=== PATIENT | female | born 1995 | race Hispanic/Latino ===

== ENCOUNTER 2018-03-14 02:19 | Day surgery (SDC) | payer MEDICAID, SELFPAY ==
[2018-03-14 02:56] VITALS: BMI 32.8
--- NOTE | 2018-03-14 03:23 | PDOC.LDHP ---
Labor and Delivery H&P Chief complaint: contractions HPI: 22 yo @ 39w0d by LMP c/w 11.4w US. Patient states she began having contractions approximately 15 minutes apart beginning at 2300 on 03/13/18. She denies recent illness, fevers, or chills. She denies vaginal discharge or bleeding. She admits to positive movement. No other complaints. Current gestational age (weeks): 39 Due date: 03/21/18 Dating criteria: last menstrual period Grav: 2 Para: 1 OB History Details: Prior for arrest of dilation and failure to descend. Current complications: other (Anemia of ) Abnormal US findings: No Previous surgical history: low tranverse CS Social history: none - Physical Exam Vital signs reviewed and normal: yes General: NAD Heart: RRR Lungs: CTAB Abdomen: gravid Extremeties: no edema FHT: category 1 [place] contractions every: 15 minutes - Vaginal Exam cm dilated: 4 Effacement: 50% Station: -2 - OB Labs Blood type: O RH: positive Antibody Screen: negative HIV: negative RPR: negative HEPSAg: negative 1 hour GCT: negative GBS: negative Urine drug screen: not done Rubella: immune - Assessment 1. TIUP - Patient counseled extensively on TOLAC vs. repeat - Not currently in active labor. - Will observe patient to determine rate of range and progression of labor 2. Anemia of - Continue Iron and PNV Disposition: TIUP, not in active labor. Will observe in L&D - Plan Plan: observation in L&D <Aaron Magaña - Last Filed: 03/14/18 04:15> <Jayden Sanabria - Last Filed: 03/14/18 07:56> Allergies/Adverse Reactions: Allergies Allergy/AdvReac Type Severity Reaction Status Date / Time No Known Drug Allergies Allergy Verified 03/14/18 02:44 Attending Addendum - Attending Addendum Date/Time: 03/14/18 8428 I personally evaluated the patient and discussed the management with Dr. Magaña I agree with the History, Examination, Assessment and Plan documented above with any addition or exceptions noted below. <Jayden Sanabria - Last Filed: 03/14/18 07:56>
[2018-03-14] MEDS ORDERED: Promethazine HCl 25 MG/ML VIAL IM SCH (04:45)
[2018-03-14] MEDS ORDERED: Morphine 10 MG/ML VIAL IM SCH (04:45)
--- NOTE | 2018-03-14 05:25 | PDOC.EVN ---
Event Note - Event Note Event Note: Patient was counseled extensively on the options of TOLAC vs. Repeat delivery. At first patient wanted to proceed with . However, after further explanation and discussion she would like to opt for TOLAC. She was counseled on risks and benefits of both options extensively. She expressed understanding. She has been counseled to inform PNC at her appointment on Thursday that she would like to attempt TOLAC. That should be scheduled at that time. She is also counseled on return precautions and verbalized understanding. She will follow up with PNC and her PCP on Thursday with further management planning made at that time. <Aaron Magaña - Last Filed: 03/14/18 05:23> Attending Addendum - Attending Addendum Date/Time: 03/14/18 0757 I personally evaluated the patient and discussed the management with Dr. Magaña I agree with the History, Examination, Assessment and Plan documented above with any addition or exceptions noted below. I have counselled personally with pt to the risks and benefits of a TOLAC. In addition She has read the written consent for TOLAC. She has considered her options and desires to proceed with TOLAC when in labor. <Jayden Sanabria - Last Filed: 03/14/18 07:58>
== END 2018-03-14 05:29 | disposition home or self-care (01) ==
LOC: L&D/OP 02:19
PROVIDERS: ATTEND Obstetrics & Gynecology
DX: O47.1 False labor at or after 37 completed weeks of gestation (principal); O99.013 Anemia complicating pregnancy, third trimester; D64.9 Anemia, unspecified; Z3A.39 39 weeks gestation of pregnancy; Z98.891 History of uterine scar from previous surgery
CPT/HCPCS: 76815; 96372; 99283; J2270; J2550

== ENCOUNTER 2018-03-14 16:37 | Inpatient (IN) | payer MEDICAID, SELFPAY ==
[2018-03-14 17:01] VITALS: BMI 36.3
[2018-03-14] MEDS ORDERED: HYDROcodone/Acetaminophen 5/325 mg Tablet PO PRN ×2 (17:15)
[2018-03-14] MEDS ORDERED: Lidocaine 1% (PF) 30 ML VIAL SC PRN (17:15)
[2018-03-14] MEDS ORDERED: Promethazine HCl 25 MG/ML VIAL IM PRN ×2 (17:15→18:33)
[2018-03-14] MEDS ORDERED: LR / Pitocin 40 units/1000 ml 1,000 ML IV PRN (17:15)
[2018-03-14] MEDS ORDERED: Ibuprofen 800 MG TAB PO PRN (17:15)
--- NOTE | 2018-03-14 17:21 | PDOC.LDHP ---
Labor and Delivery H&P Chief complaint: other (Prior CS HX desires /TOLAC) HPI: @ 3509: This patient is a 22 yo prior CS in 2016 who desires TOLAC. She was seen here this AM with Dr Sanabria at [id number] (approx) for threatened ctxs and was 4 sm then. Now with persistent contractions. No VB, no ROM, good FM. She is 39 weeks No HAs nor visual changes. Review of Systems: Complete ROS performed and negative as per HPI. Past medical: neg Social HX: negative for ETOH, drugs, tobacco Current gestational age (weeks): 39 Due date: 03/21/18 Dating criteria: last menstrual period Grav: 2 Para: 1 Current complications: none Abnormal US findings: No Current medications: pre-deneen vitamins Previous surgical history: low tranverse CS (2015) Allergies/Adverse Reactions: Allergies Allergy/AdvReac Type Severity Reaction Status Date / Time No Known Drug Allergies Allergy Verified 03/14/18 02:44 Social history: none - Physical Exam Vital signs reviewed and normal: yes General: NAD Heart: RRR Lungs: CTAB Abdomen: gravid Extremeties: no edema FHT: category 1 [place] contractions every: irregular contractions - Vaginal Exam cm dilated: 6 (BOWI) Effacement: 75% Station: -1 - Assessment L&D Assessment: term patient in labor Desires TOLAC. First CS was due to failure to descend. - Plan Plan: admit to L&D, informed consent obtained, anesthesia consult for pain management, other (Risks and benefits of reviewed. This is a patient of the clinic...I have notified the residents of her arrival (they are in ICU currently). last CS was in 2015. I have discussed short interpregnancy interval: risks of uterine scare dehescence/rupture, blood transfusion, need for CS, need for emergent procedures discussed. desires trial of labor. T&S sent due to HX.)
[2018-03-14] MEDS: Lactated Ringer's 1,000 ML IV SCH ×3 (17:25→23:42)
[2018-03-14 17:49] LABS: Mean Corpuscular HGB CONC 33.5 g/dL (32.0-36.0); Mean Corpuscular Hemoglobin 25.6 pg (27.0-31.0); Mean Corpuscular Volume 76.2 fl (81.0-99.0); Mean Platelet Volume 7.7 fL (7.4-10.4); Platelet Count 358 thou/uL (130-400); White Blood Cell (WBC) Count 12.2 thou/uL (4.8-10.8)
[2018-03-14] MEDS ORDERED: DISCONTINUE ALL PREVIOUS NARCOTICS FS SCH (18:00)
[2018-03-14] MEDS ORDERED: Bupivacaine 0.5% 20 ML, fentaNYL Citrate/PF 400 MCG in Sodium Chloride 0.9% 72 ML EPIDURAL SCH (18:00)
[2018-03-14] MEDS ORDERED: Naloxone HCl 0.4 mg/ml Vial IVP PRN ×2 (18:33)
[2018-03-14] MEDS ORDERED: Ondansetron HCl/PF 4 MG/2 ML Vial IVP PRN (18:33)
[2018-03-14] MEDS ORDERED: Acetaminophen 325 MG TAB PO PRN (18:33)
[2018-03-14] MEDS ORDERED: Lactated Ringer's 500 ML IV PRN (18:33)
[2018-03-14] MEDS ORDERED: ePHEDrine/0.9% NaCl/PF SYRINGE 50 mg/10 ml SLOW IVP PRN (18:33)
[2018-03-14] MEDS ORDERED: diphenhydrAMINE 50 MG/ML VIAL IVP PRN (18:33)
[2018-03-14] MEDS ORDERED: Hydrocerin (Eucerin) Cream 120 gm Jar TOP PRN (18:33)
[2018-03-14 18:36] LABS: HBSAg Index 0.22 S/CO (0-0.99); HIV (1/2) Antibody/Antigen Non-Reactive (NonReactive); HIV 1/2 INDEX 0.06 S/CO (<1.00); Hep B Surf Ag Non-Reactive S/CO (NonReactive); Syphilis Antibody Nonreactive (Nonreactive); Syphilis Antibody Index 0.04 S/CO (<1.00 Non-Reactive)
[2018-03-14] MEDS ORDERED: Fentanyl 4mcg/Marcaine 0.1% Cassette 100 ML EPIDURAL SCH (18:45)
[2018-03-14] MEDS ORDERED: Communication Order-Pharmacy FS SCH (18:45)
--- NOTE | 2018-03-14 21:23 | PDOC.LDPN ---
Labor & Delivery Progress Note - Subjective Subjective: comfortable - Objective Vital signs reviewed and normal: yes General: NAD, resting Uterine fundus: non tender Dilation: 7 Effacement: 90% Station: 0 FHT: category 1 [place] contractions every: 5 minutes AROM: clear fluid IUPC placed: yes Resuscitative measures: maternal oxygen, maternal IV fluids, maternal position change - Assessment (1) Term Code(s): Z34.80 - ENCOUNTER FOR SUPRVSN OF NORMAL , UNSP TRIMESTER Current Visit: Yes Status: Acute (2) Encounter for trial of labor Code(s): O33.9 - MATERNAL CARE FOR DISPROPORTION, UNSPECIFIED Current Visit: Yes Status: Acute Plan: continue plan of care, resuscitative measures -: 1. Term - Patient continues to make change - IUPC placed - Continue Q2h checks - Will initiate Pitocin at this time <Aaron Magaña - Last Filed: 03/14/18 21:21> Plan: other (Faculty: Noted. Agree with pitcoin for augmentation.) <Osmani Dumont - Last Filed: 03/14/18 22:14>
[2018-03-14] MEDS ORDERED: LR 500 ML/Oxytocin 10 units 500 ML IV SCH (21:30)
--- NOTE | 2018-03-15 00:32 | PDOC.OPDEL ---
OB Operative/Delivery Note Delivery Dr/Surgeon: Sadia; Tim as Staff (present and participated) Assist: Staff: Tim Pre-Delivery Diagnosis: active labor, other () Procedure/Post Delivery Dx: vaginal delivery after CS Anesthesia: epidural - Findings A Sex: male - Additional Findings/Plan Placenta delivered: spontaneous (at 0020 ( 5 minutes after Baby ).) Repaired Obstetrical Laceration: 2nd degree (Repaired by Franklin ( under my presence).) Estimated blood loss: 300 Compilations/Other Findings: Body Cord X 1 Placenta delivery via [place] mechanism at 5 minutes Baby vigours Counts correct Complications none
[2018-03-15] MEDS ORDERED: Milk Of Magnesia 30 ML UDCUP PO PRN (01:33)
[2018-03-15] MEDS ORDERED: Ondansetron HCl/PF 4 MG/2 ML Vial IVP PRN (01:33)
[2018-03-15] MEDS ORDERED: Bisacodyl 10 MG SUPP PR PRN (01:33)
[2018-03-15] MEDS: Ibuprofen 800 MG TAB PO SCH ×3 (01:56→18:03)
[2018-03-15] MEDS ORDERED: Adacel (T-DAP) 0.5 ML VIAL IM ONE (02:00)
[2018-03-15 05:38] LABS: Hemoglobin 10.3 g/dL (12.0-16.0); Mean Corpuscular HGB CONC 33.7 g/dL (32.0-36.0); Mean Corpuscular Hemoglobin 25.8 pg (27.0-31.0); Mean Corpuscular Volume 76.7 fl (81.0-99.0); Mean Platelet Volume 7.6 fL (7.4-10.4); Platelet Count 305 thou/uL (130-400); RBC Distribution Width 15.9 % (11.5-14.5); Red Blood Cell (RBC) Count 3.99 mill/uL (4.20-5.40); White Blood Cell (WBC) Count 13.1 thou/uL (4.8-10.8)
--- NOTE | 2018-03-15 06:40 | PDOC.PP ---
Post Progress Note Post Day #: 6-7 hours Subjective: Doing well, no issues now PO intake tolerated: yes Flatus: yes Ambulation: yes Vital Signs (12 hours) Temp Pulse Resp BP BP 03/15/18 05:00 99.5 F 90 16 102/54 L 03/15/18 04:00 99.7 F H 100 16 103/54 L 03/15/18 03:00 100.1 F H 101 H 18 112/53 L 03/14/18 19:33 99.2 F 92 18 Weight Weight 162 lb - Physical Examination General: NAD Cardiovascular: no m/r/g Respiratory: clear to auscultation bilaterally Abdominal: + bowel sounds Extremities: negative homans (B) Neurological: no gross focal deficits Psychiatric: A&Ox3, normal affect Result Diagrams: 03/15/18 05:25 Additional Labs: Post Labs Blood Type O POSITIVE 03/14/18 17:25 Hep Bs Antigen Non-Reactive S/CO (NonReactive) 03/14/18 17:25 (1) Vaginal after delivery Code(s): O34.219 - MATERNAL CARE FOR UNSP TYPE SCAR FROM PREVIOUS DEL Status: Acute - Assessment/Plan Patient s/p successful now 6-7 hours postpatum. Tmax was 1101, and all other temps are 99 range. her pulse is a little tachy at 90-100s, but HCT good at 30. This could be early metritis. Although tmax not actually at 100.4, we will start IV amp and gent to cover and treat early. We will notify Pedi.
[2018-03-15] MEDS ORDERED: Gentamicin Sulfate 120 MG in Premix Bag 1 BAG IVPB SCH (06:45)
[2018-03-15] MEDS: Prenatal Vitamin 1 TAB PO SCH (08:35)
[2018-03-15] MEDS: Docusate Calcium (SURFAK) 240 MG CAP PO SCH ×2 (08:35→21:28)
[2018-03-15] MEDS: Ferrous Sulfate 325 MG TAB PO SCH ×2 (08:35→15:58)
[2018-03-15] MEDS: Ampicillin 2 GM in Sodium Chloride 0.9% 100 ML IVPB SCH ×3 (12:40→23:43)
[2018-03-15] MEDS: HYDROcodone/Acetaminophen 5/325 mg Tablet PO PRN (13:36)
[2018-03-15] MEDS: Gentamicin Sulfate 80 MG in Premix Bag 1 BAG IVPB SCH ×2 (15:37→21:28)
[2018-03-16] MEDS: Ibuprofen 800 MG TAB PO SCH ×2 (02:01→13:55)
[2018-03-16] MEDS: Gentamicin Sulfate 80 MG in Premix Bag 1 BAG IVPB SCH ×2 (05:34→13:57)
[2018-03-16] MEDS: Ampicillin 2 GM in Sodium Chloride 0.9% 100 ML IVPB SCH ×2 (06:12→11:29)
[2018-03-16 06:22] LABS: #Basophils 0.1 thou/uL (0.0-0.2); #Eosinphils 0.5 thou/uL (0.0-0.7); #Lymphocytes 2.2 thou/uL (1.20-3.40); #Monocytes 0.5 thou/uL (0.11-0.59); #Neutrophils 5.2 thou/uL (1.40-6.50); %Basophils 0.8 % (0.0-1.0); %Eosinophils 5.5 % (0.0-10.0); %Monocytes 5.8 % (0.0-10.0); %Neutrophils 61.9 % (42.0-75.0); Hemoglobin 9.2 g/dL (12.0-16.0); Mean Corpuscular HGB CONC 33.3 g/dL (32.0-36.0); Mean Corpuscular Hemoglobin 26.2 pg (27.0-31.0); Mean Corpuscular Volume 78.6 fl (81.0-99.0); Mean Platelet Volume 7.9 fL (7.4-10.4); Platelet Count 283 thou/uL (130-400); RBC Distribution Width 15.9 % (11.5-14.5); White Blood Cell (WBC) Count 8.4 thou/uL (4.8-10.8)
--- NOTE | 2018-03-16 07:59 | PDOC.PP ---
Post Progress Note Post Day #: 2 Subjective: 22 yo [id number] s/p complicated by 2 degree perineal laceration. Pt has some abd and back pain, however she states that this is improving each day. Vaginal bleeding is minimal. She is urinating and has had a BM. She denies leg swelling or pain, denies chest pain or SOB. PO intake tolerated: yes Flatus: yes Ambulation: yes Vital Signs (12 hours) Temp Pulse Resp BP Pulse Ox 03/16/18 05:38 98.7 F 77 18 90/52 L 97 03/15/18 23:46 98.8 F 79 16 03/15/18 23:44 98.8 F 79 16 105/54 L 96 Weight Weight 73.482 kg - Physical Examination General: NAD Cardiovascular: no m/r/g, RRR Respiratory: clear to auscultation bilaterally Abdominal: + bowel sounds, appropriately TTP Fundus firm & at: u -4 Extremities: negative homans (B) Skin: no rash Neurological: no gross focal deficits Psychiatric: A&Ox3, normal affect Result Diagrams: 03/16/18 05:56 Additional Labs: Post Labs Blood Type O POSITIVE 03/14/18 17:25 Hep Bs Antigen Non-Reactive S/CO (NonReactive) 03/14/18 17:25 (1) fever Code(s): O86.4 - PYREXIA OF UNKNOWN ORIGIN FOLLOWING DELIVERY Status: Acute (2) Vaginal after delivery Code(s): O34.219 - MATERNAL CARE FOR UNSP TYPE SCAR FROM PREVIOUS DEL Status: Acute - Assessment/Plan Yesterday pt had elevated temp and HR, though none over 100.4 or 100 bmp. She was prophylactically started on abx due to concern for possible endometritis. Since then her temp and HR has been in the normal range. Uterus is non tender. WBC count is WNL. Concern of infection is low at this point, will plan to dc this afternoon after abx. Follow up at [facility] in 2 weeks unless symptoms such as fever, chills, or increasing abd pain begin.
[2018-03-16] MEDS: Prenatal Vitamin 1 TAB PO SCH (09:22)
[2018-03-16] MEDS: Ferrous Sulfate 325 MG TAB PO SCH (09:22)
[2018-03-16] MEDS: Docusate Calcium (SURFAK) 240 MG CAP PO SCH (09:22)
[2018-03-16] MEDS: HYDROcodone/Acetaminophen 5/325 mg Tablet PO PRN (11:35)
[2018-03-16 16:17] VITALS: BP 100/51; TEMP 97.7
== END 2018-03-16 17:35 | disposition home or self-care (01) | DRG 774 ==
LOC: L&D/OP 16:37 → L&D 18:09 → 3SW 03-15 03:00
PROVIDERS: ADMIT Obstetrics & Gynecology; ATTEND Obstetrics & Gynecology
PROC: 10E0XZZ Delivery of Products of Conception, External Approach (ICD-10-PCS; principal; 2018-03-14)
PROC: 0KQM0ZZ Repair Perineum Muscle, Open Approach (ICD-10-PCS; 2018-03-14)
DX: O34.211 Maternal care for low transverse scar from previous cesarean delivery (principal); O86.4 Pyrexia of unknown origin following delivery; O69.81X0 Labor and delivery complicated by cord around neck, without compression, not applicable or unspecified; Z37.0 Single live birth; Z3A.39 39 weeks gestation of pregnancy; O70.1 Second degree perineal laceration during delivery
CPT/HCPCS: 36415; 51701; 51702; 85025; 85027; 86780; 86850; 86900; 86901; 87340; 87389; 99285; J0290; J1580; J2001; J3010; J3490; J7050; J7120

== ENCOUNTER 2019-06-13 19:06 | Emergency (ER) | payer MEDICAID, OTHER ==
[2019-06-13] MEDS ORDERED: Acetaminophen 500 MG TAB ONE (20:17)
[2019-06-13] MEDS ORDERED: Ibuprofen 200 MG TAB ONE (20:17)
--- NOTE | 2019-06-13 21:26 | CT ---
CT HEAD WITHOUT CONTRAST: 06/13/2019 HISTORY: Right-sided headache. Nausea. Trauma. COMPARISON: None. TECHNIQUE: Axial CT imaging at 5 mm intervals, from the vertex through the skull base, without contrast. FINDINGS: The imaged paranasal sinuses/mastoid air cells are well aerated. No displaced calvarial fracture. N o intracranial hemorrhage, midline shift, mass effect, or ventricular enlargement. IMPRESSION: No acute findings. POS: SUE
== END 2019-06-13 21:30 | disposition home or self-care (01) ==
LOC: ERS 19:06
DX: S09.90XA Unspecified injury of head, initial encounter (principal); W22.8XXA Striking against or struck by other objects, initial encounter
CPT/HCPCS: 70450

== ENCOUNTER 2019-07-04 02:36 | Emergency (ER) | payer MEDICAID, SELFPAY | END 2019-07-04 03:45 | disposition home or self-care (01) | LOC: ERS 02:36 | DX: M79.81 Nontraumatic hematoma of soft tissue (principal) | CPT/HCPCS: 99283 ==

== ENCOUNTER 2020-05-11 11:06 | Emergency (ER) | payer SELFPAY ==
[~2020-05-11 11:06] MED LIST: Iopamidol-370 76% 500 ML 1 ML ONE
[2020-05-11] MEDS ORDERED: Ondansetron PF 4 MG/2 ML Vial ONE (11:47)
[2020-05-11] MEDS ORDERED: Ketorolac Tromethamine 30 MG/ML VIAL ONE (11:47)
[2020-05-11] MEDS ORDERED: Morphine 4 MG/ML VIAL ONE ×2 (11:47→13:32)
[2020-05-11 12:15] LABS: #Eosinphils 0.2 thou/uL (0.0-0.7); #Lymphocytes 1.7 thou/uL (1.20-3.40); #Monocytes 0.2 thou/uL (0.11-0.59); #Neutrophils 3.2 thou/uL (1.40-6.50); %Basophils 0.6 % (0.0-1.0); %Eosinophils 3.6 % (0.0-10.0); %Lymphocytes 31.4 % (21.0-51.0); %Monocytes 3.9 % (0.0-10.0); %Neutrophils 60.6 % (42.0-75.0); Hemoglobin 12.4 g/dL (12.0-16.0); Mean Corpuscular HGB CONC 32.5 g/dL (32.0-36.0); Mean Corpuscular Hemoglobin 27.3 pg (27.0-31.0); Mean Corpuscular Volume 84.1 fL (78.0-98.0); Mean Platelet Volume 7.6 fL (7.4-10.4); Platelet Count 321 thou/uL (130-400); RBC Distribution Width 14.4 % (11.5-14.5); Red Blood Cell (RBC) Count 4.54 mill/uL (4.20-5.40); White Blood Cell (WBC) Count 5.3 thou/uL (4.8-10.8)
[2020-05-11 12:43] LABS: BHCG - Serum Negative (NEGATIVE); Pregs Control Background? CLEAR/WHITE (CLR/WHITE); Pregs Control Bar Appear? YES (CONTROL BAR)
[2020-05-11 12:45] LABS: ALT (SGPT) 13 U/L (8-55); AST (SGOT) 15 U/L (5-34); Albumin 4.4 g/dL (3.5-5.0); Alkaline Phosphatase 77 U/L (40-110); Anion Gap 12 mmol/L (10-20); BUN (Urea Nitrogen) 8 mg/dL (7.0-18.7); Bilirubin, Total 0.3 mg/dL (0.2-1.2); CK (CPK) 60 U/L (29-168); Calc. Creatinine Clearance 0 mL/min (70-130); Calcium 8.9 mg/dL (7.8-10.44); Carbon Dioxide 22 mmol/L (22-29); Chloride 109 mmol/L (98-107); Estimated GFR-MDRD Greater than 90; Globulin 3.2 g/dL (2.4-3.5); Glucose 105 mg/dL (70-105); Potassium 3.4 mmol/L (3.5-5.1); Protein, Total 7.6 g/dL (6.0-8.3); Sodium 140 mmol/L (136-145)
--- NOTE | 2020-05-11 13:10 | CT ---
CT Abdomen Pelvis W Con: 05/11/2020 11:38 AM CLINICAL INFORMATION: Left flank pain COMPARISON: None. TECHNIQUE: Multiple contiguous axial images were obtained and a CT of the abdomen and pelvis with IV contrast. C oronal and sagittal reformats were performed. FINDINGS: Lower Chest: within normal limits. Abdomen: Liver: within normal limits. Bile Ducts: Normal caliber. Gallbladder: No calcified gallstones. Normal caliber wall. Pancreas: within normal limits. Spleen: within normal limits. Adrenals: within normal limits. Kidneys: Moderate left hydronephrosis with delay of the left nephrogram compared to the right. Pelvis: Reproductive Organs: No pelvic masses. Ureters: 5 mm calcification in the distal left ureter with mild hydroureter Bladder: within normal limits. Peritoneum: No ascites or free air, no fluid collection. Bowel: Normal caliber. Normal appendix. Mesentery and Retroperitoneum: No enlarged mesenteric or retroperitoneal lymph nodes. Vessels: Normal. Abdominal Wall: within normal limits. Bones: Within normal limits IMPRESSION: Left distal ureteral calcification with left-sided hydronephrosis
[2020-05-11 13:37] LABS: Bacteria/HPF None Seen HPF (None Seen); Bilirubin Negative (Negative); Blood, Urine 3+ (Negative); Clarity Turbid (Clear); Glucose, Urine (Dipstick) Normal (Negative); Leukocyte Negative Leu/uL (Negative); Nitrite Negative (Negative); Protein, Urine (Dipstick) 50 mg/dL (Neg-Trace); RBC/HPF Greater than 50 HPF (0-3); Squamous Epithelial 0-3 HPF (0-3); Urobilinogen Normal mg/dL (Less than 2)
== END 2020-05-11 15:05 | disposition home or self-care (01) ==
LOC: ERS 11:06
DX: N13.2 Hydronephrosis with renal and ureteral calculous obstruction (principal); R11.2 Nausea with vomiting, unspecified
CPT/HCPCS: 74177; 80053; 81003; 81015; 82550; 83605; 84703; 85025; 96361; 96374; 96375; 96376; J1885; J2270; J2405; Q9967

== ENCOUNTER 2020-11-21 00:54 | Emergency (ER) | payer SELFPAY ==
[2020-11-21] MEDS ORDERED: Ondansetron PF 4 MG/2 ML Vial ONE (01:30)
[2020-11-21] MEDS ORDERED: Morphine 4 MG/ML VIAL ONE (01:30)
[2020-11-21 01:36] LABS: Bacteria/HPF None Seen HPF (None Seen); Bilirubin Negative (Negative); Blood, Urine Negative (Negative); Clarity Turbid (Clear); Glucose, Urine (Dipstick) Normal (Negative); Ketone, Urine Negative (Negative); Leukocyte 250 Leu/uL (Negative); Nitrite Negative (Negative); Protein, Urine (Dipstick) Negative (Neg-Trace); RBC/HPF None Seen HPF (0-3); Specific Gravity, Urine 1.022 (1.002-1.036); Urobilinogen Normal mg/dL (Less than 2); WBC/HPF 0-3 HPF (0-3)
[2020-11-21 01:37] LABS: Pregnancy Test - Urine (BHCG) Negative (Negative); Pregu Control Background? CLEAR/WHITE (CLR/WHITE); Pregu Control Bar Appear? YES (CONTROL BAR); Specific Gravity 1.022 (1.002-1.036)
[2020-11-21 01:56] LABS: #Eosinphils 0.2 thou/uL (0.0-0.7); #Lymphocytes 2.1 thou/uL (1.20-3.40); #Monocytes 0.4 thou/uL (0.11-0.59); #Neutrophils 2.5 thou/uL (1.40-6.50); %Basophils 0.7 % (0.0-1.0); %Eosinophils 3.4 % (0.0-10.0); %Lymphocytes 40.6 % (21.0-51.0); %Monocytes 7.1 % (0.0-10.0); %Neutrophils 48.3 % (42.0-75.0); Hemoglobin 12.1 g/dL (12.0-16.0); Mean Corpuscular HGB CONC 32.7 g/dL (32.0-36.0); Mean Corpuscular Hemoglobin 29.3 pg (27.0-31.0); Mean Corpuscular Volume 89.4 fL (78.0-98.0); Mean Platelet Volume 7.8 fL (7.4-10.4); Platelet Count 281 thou/uL (130-400); RBC Distribution Width 12.7 % (11.5-14.5); Red Blood Cell (RBC) Count 4.14 mill/uL (4.20-5.40); White Blood Cell (WBC) Count 5.1 thou/uL (4.8-10.8)
[2020-11-21 02:03] LABS: BHCG - Serum Negative (NEGATIVE); Pregs Control Background? CLEAR/WHITE (CLR/WHITE); Pregs Control Bar Appear? YES (CONTROL BAR)
[2020-11-21 02:19] LABS: ALT (SGPT) 12 U/L (8-55); AST (SGOT) 14 U/L (5-34); Alkaline Phosphatase 78 U/L (40-110); Anion Gap 13 mmol/L (10-20); BUN (Urea Nitrogen) 10 mg/dL (7.0-18.7); Bilirubin, Total 0.2 mg/dL (0.2-1.2); Calc. Creatinine Clearance 0 mL/min (70-130); Calcium 8.4 mg/dL (7.8-10.44); Carbon Dioxide 21 mmol/L (22-29); Chloride 108 mmol/L (98-107); Globulin 3.1 g/dL (2.4-3.5); Glucose 119 mg/dL (70-105); Lipase 45 U/L (8-78); Potassium 3.7 mmol/L (3.5-5.1); Protein, Total 7.1 g/dL (6.0-8.3); Sodium 138 mmol/L (136-145)
[2020-11-21] MEDS ORDERED: Ketorolac Tromethamine 30 MG/ML VIAL ONE (02:30)
[2020-11-21] MEDS ORDERED: cefTRIAXone\\ROCEPHIN 1 GM VIAL ONE (02:54)
--- NOTE | 2020-11-21 08:10 | CT ---
PRELIMINARY REPORT/[facility]/EMERGENCY AFTER HOURS PROCEDURE: EXAM: CT Abdomen and Pelvis Without Intravenous Contrast CLINICAL HISTORY: 25-year-old female patient presents ER with complaint of lower abdominal pain, low back pain for the last few days and worse today. The patient is also reporting some dysuria. The patient reports that she has a history of kidney stones in the past and this feels similar. TECHNIQUE: Axial computed tomography images of the abdomen and pelvis without intravenous contrast. CONTRAST: None. COMPARISON: None provided. FINDINGS: LUNG BASES: No basilar airspace consolidation or pleural effusion. LIVER: Unremarkable. GALLBLADDER AND BILE DUCTS: Unremarkable. No calcified stone. No ductal dilation. PANCREAS: Unremarkable. SPLEEN: Unremarkable. ADRENAL GLANDS: Unremarkable. KIDNEYS, URETERS, AND BLADDER: Unremarkable. No hydronephrosis or nephrolithiasis. No ureteral or vicki dder calculi. Mild stranding seen around the bladder, nonspecific. Correlate with urinalysis to exclude infection. STOMACH AND BOWEL: No obstruction. No wall thickening. No CT evidence of colitis or acute diverticuli tis. APPENDIX: No CT evidence for appendicitis. PERITONEUM: No free fluid. No free air. LYMPH NODES: No lymphadenopathy. REPRODUCTIVE: Unremarkable as visualized. VASCULATURE: No aortic aneurysm. ABDOMINAL WALL AND SOFT TISSUES: Unremarkable. BONES: No fracture or suspicious osseous abnormality. IMPRESSION: No evidence for bowel obstruction. No CT evidence for appendicitis. Mild stranding seen around the bladder, nonspecific. Correlate with urinalysis to exclude infection. ELECTRONICALLY SIGNED BY: Girish Garcia MD Nov 21, 2020 2:31:14 AM RESPIRATORY ASSISTANT FINAL REPORT EMERGENT AFTER HOURS NONCONTRAST CT ABDOMEN AND PELVIS: HISTORY: Lower abdominal pain and low back pain. COMPARISON: 05/11/2020. IMPRESSION: 1. Patchy parenchymal density posterior aspect left lung base which may be related to focal area of p neumonitis. 2. No renal or ureteral calculi seen bilaterally, and there is no evidence of hydronephrosis. 3. Small to moderate amount retained fecal material seen throughout the majority of the colon suggest ing constipation. 4. No CT evidence of appendicitis. 5. Minimal nonspecific inflammatory stranding adjacent to urinary bladder. Correlation with urinalysi s is recommended as cystitis is a possibility. 6. Mild disagreement with preliminary report by [facility]. Patchy parenchymal density left larry g base was not mentioned on the preliminary report by [facility]. While this could represent area of atelectasis, findings are worrisome for pneumonitis, and follow-up evaluation is suggested. F indings were discussed with Dr. Chacon in the emergency department on 11/21/2020 at 0808 hours. Transcribed Date/Time: 11/21/2020 10:42 AM
== END 2020-11-21 03:15 | disposition home or self-care (01) ==
LOC: ERS 00:54
DX: N39.0 Urinary tract infection, site not specified (principal)
CPT/HCPCS: 74176; 80053; 81003; 81015; 81025; 83690; 84703; 85025; 87077; 87086; 87186; 94760; 96365; 96375; J0696; J1885; J2270; J2405

== ENCOUNTER 2020-11-24 01:05 | Emergency (ER) | payer SELFPAY ==
[2020-11-24] MEDS ORDERED: Ondansetron PF 4 MG/2 ML Vial ONE (01:40)
[2020-11-24] MEDS ORDERED: Morphine 4 MG/ML VIAL ONE (01:40)
[2020-11-24 01:50] LABS: #Eosinphils 0.1 thou/uL (0.0-0.7); #Lymphocytes 1.1 thou/uL (1.20-3.40); #Monocytes 0.5 thou/uL (0.11-0.59); #Neutrophils 3.9 thou/uL (1.40-6.50); %Basophils 0.3 % (0.0-1.0); %Eosinophils 2.2 % (0.0-10.0); %Lymphocytes 19.8 % (21.0-51.0); %Monocytes 8.5 % (0.0-10.0); %Neutrophils 69.2 % (42.0-75.0); Hemoglobin 11.5 g/dL (12.0-16.0); Mean Corpuscular HGB CONC 34.1 g/dL (32.0-36.0); Mean Corpuscular Hemoglobin 30.8 pg (27.0-31.0); Mean Corpuscular Volume 90.6 fL (78.0-98.0); Mean Platelet Volume 7.6 fL (7.4-10.4); Platelet Count 249 thou/uL (130-400); RBC Distribution Width 12.7 % (11.5-14.5); Red Blood Cell (RBC) Count 3.73 mill/uL (4.20-5.40); White Blood Cell (WBC) Count 5.7 thou/uL (4.8-10.8)
[2020-11-24 01:52] LABS: BHCG - Serum Negative (NEGATIVE); Pregs Control Background? CLEAR/WHITE (CLR/WHITE); Pregs Control Bar Appear? YES (CONTROL BAR)
[2020-11-24 02:07] LABS: ALT (SGPT) 13 U/L (8-55); AST (SGOT) 14 U/L (5-34); Albumin 3.8 g/dL (3.5-5.0); Alkaline Phosphatase 72 U/L (40-110); Anion Gap 11 mmol/L (10-20); BUN (Urea Nitrogen) 8 mg/dL (7.0-18.7); Bilirubin, Total Less than 0.2 mg/dL (0.2-1.2); Calc. Creatinine Clearance 0 mL/min (70-130); Calcium 8.8 mg/dL (7.8-10.44); Carbon Dioxide 25 mmol/L (22-29); Chloride 106 mmol/L (98-107); Globulin 2.9 g/dL (2.4-3.5); Glucose 105 mg/dL (70-105); Potassium 3.9 mmol/L (3.5-5.1); Protein, Total 6.7 g/dL (6.0-8.3); Sodium 138 mmol/L (136-145)
--- NOTE | 2020-11-24 08:33 | CT ---
PRELIMINARY REPORT/[facility]/EMERGENCY AFTER HOURS PROCEDURE EXAM: CT Abdomen and Pelvis with Intravenous Contrast CLINICAL HISTORY: SEEN LAST THURSDAY FOR BACK PAIN. PAIN HAS GOTTEN WORSE AND TRAVELED TO THE ABD. DIARRHEA TODAY. AND CU RRENTLY ON HER MENSTRUAL CYCLE TECHNIQUE: Axial computed tomography images of the abdomen and pelvis with intravenous contrast. Coronal and sa gittal reformatted images provided. CONTRAST: With; ISOVUE 370,100mL intravenous. No oral contrast. COMPARISON: CT - CT STONE PROTOCOL - 11/21/2020 02:07 AM DOUGH RAISER FINDINGS: LUNG BASES: Nodular opacities in the posterior left lung base. LIVER: Unremarkable. GALLBLADDER AND BILE DUCTS: Unremarkable. No calcified stone. No ductal dilation. PANCREAS: Unremarkable. SPLEEN: Unremarkable. ADRENAL GLANDS: Unremarkable. KIDNEYS, URETERS, AND BLADDER: Unremarkable. No hydronephrosis or nephrolithiasis. No ureteral or bladder calculi. STOMACH AND BOWEL: No obstruction. No wall thickening. No CT evidence of colitis or acute diverticulitis. Multiple nons pecific fluid-filled loops of bowel. APPENDIX: No CT evidence for appendicitis. PERITONEUM: No free fluid. No free air. LYMPH NODES: No lymphadenopathy. REPRODUCTIVE: Unremarkable as visualized. VASCULATURE: No aortic aneurysm. BONES: No fracture or suspicious osseous abnormality. ABDOMINAL WALL AND SOFT TISSUES: Unremarkable. IMPRESSION: 1. Nodular opacities in the right lung base. May represent acute infectious or inflammatory process . Follow-up to resolution is recommended to exclude the possibility of underlying neoplasm. 2. Nonspecific fluid within loops of bowel. This can be seen with enteritis but can be normal. ELECTRONICALLY SIGNED BY: Charles Goetz M.D. Nov 24, 2020 4:00:34 AM DOUGH RAISER This report is intended for review by the ordering physician only, in accordance of law. If you recei ve this report in error, please call [facility] at [phone]. FINAL REPORT EXAM: CT ABDOMEN AND PELVIS HISTORY: Worsening back pain, radiating to the abdomen. COMPARISON: 11/21/2020 Procedure: Multiple contiguous axial images were obtained and a CT of the abdomen and pelvis with IV contrast. C oronal reformats were performed. FINDINGS: Lower Chest: Atelectatic changes as well as groundglass opacities with a nodular appearance predomina ntly left lower lobe. Vessels: Normal caliber aorta Heart: Normal heart size. No significant pericardial fluid Abdomen: Portal vein:Patent Gallbladder: No calcified gallstones. Normal caliber wall. Liver: within normal limits. Pancreas: within normal limits. Spleen: within normal limits. Adrenals: within normal limits. Kidneys: Symmetric enhancement. No obstructive uropathy. Peritoneum: No ascites or free air, no fluid collection. Bowel: Limited evaluation of the alimentary canal by the lack of oral contrast. The distal duodenum a nd proximal jejunal loop is fluid-filled and dilated. Additional fluid-filled loops of small bowel are identified without significant dilatation or distention. Normal ileocecal junction. Normal calibe r appendix. Scattered fecal material in a nondistended, nondilated colon. Minimal diverticulosis. Mesentery and Retroperitoneum: No enlarged mesenteric or retroperitoneal lymph nodes. Abdominal Wall: within normal limits. Pelvis: Reproductive Organs: Fluid attenuation the vaginal vault is noted. Correlate clinically. Uterus and a dnexal structures are otherwise unremarkable for acute abnormality. Pelvis: No mass, lymphadenopathy, free air or free fluid. Bladder: Unremarkable Bones: within normal limits. IMPRESSION: 1. Normal caliber appendix. 2. Nonspecific fluid-filled loops of small bowel. If there is concern for developing ileus or obstru ctive process, serial abdomen radiographs can be performed. 3. Nonspecific fluid in the vaginal vault. Correlate clinically. 4. Possible developing of bilateral lower lobe infiltrates, left greater than right. CODE T Code QA Transcribed Date/Time: 11/24/2020 9:43 AM
== END 2020-11-24 05:17 | disposition home or self-care (01) ==
LOC: ERS 01:05
DX: A08.4 Viral intestinal infection, unspecified (principal)
CPT/HCPCS: 36415; 74177; 80053; 84703; 85025; 96374; 96375; J2270; J2405

== ENCOUNTER 2021-02-02 02:13 | Emergency (ER) | payer OTHER, SELFPAY ==
[2021-02-02 09:11] LABS: SARS-CoV-2 PCR by NAA Not Detected (NotDetected)
== END 2021-02-02 02:30 | disposition home or self-care (01) ==
LOC: ERS 02:13
DX: J02.9 Acute pharyngitis, unspecified (principal); R09.81 Nasal congestion; R05 Cough; J34.89 Other specified disorders of nose and nasal sinuses; Z20.822 Contact with and (suspected) exposure to COVID-19
CPT/HCPCS: 87635; 99283; U0003; U0005

== ENCOUNTER 2021-06-17 21:44 | Emergency (ER) | payer OTHER, SELFPAY ==
[2021-06-17 22:49] LABS: #Eosinphils 0.1 thou/uL (0.0-0.7); #Lymphocytes 1.3 thou/uL (1.20-3.40); #Monocytes 0.6 thou/uL (0.11-0.59); #Neutrophils 2.7 thou/uL (1.40-6.50); %Basophils 0.8 % (0.0-1.0); %Lymphocytes 28.1 % (21.0-51.0); %Monocytes 11.6 % (0.0-10.0); %Neutrophils 56.5 % (42.0-75.0); Hemoglobin 12.2 g/dL (12.0-16.0); Mean Corpuscular HGB CONC 34.6 g/dL (32.0-36.0); Mean Corpuscular Hemoglobin 29.8 pg (27.0-31.0); Mean Corpuscular Volume 86.3 fL (78.0-98.0); Mean Platelet Volume 8.2 fL (7.4-10.4); Platelet Count 283 thou/uL (130-400); RBC Distribution Width 14.2 % (11.5-14.5); White Blood Cell (WBC) Count 4.7 thou/uL (4.8-10.8)
[2021-06-17 22:55] LABS: Bacteria/HPF 4+ HPF (None Seen); Bilirubin Negative (Negative); Blood, Urine Negative (Negative); Clarity Turbid (Clear); Glucose, Urine (Dipstick) Normal (Negative); Ketone, Urine 40 mg/dL (Negative); Leukocyte 500 Leu/uL (Negative); Nitrite Negative (Negative); Pregnancy Test - Urine (BHCG) Negative (Negative); Pregu Control Background? CLEAR/WHITE (CLR/WHITE); Pregu Control Bar Appear? YES (CONTROL BAR); Protein, Urine (Dipstick) 50 mg/dL (Neg-Trace); RBC/HPF 0-3 HPF (0-3); Specific Gravity 1.036 (1.002-1.036); Specific Gravity, Urine 1.036 (1.002-1.036); Squamous Epithelial 21-50 HPF (0-3); Urobilinogen Normal mg/dL (Less than 2); WBC/HPF Greater than 50 HPF (0-3)
[2021-06-17 22:56] LABS: ALT (SGPT) 15 U/L (8-55); AST (SGOT) 14 U/L (5-34); Albumin 4.3 g/dL (3.5-5.0); Alkaline Phosphatase 68 U/L (40-110); Anion Gap 11 mmol/L (10-20); BUN (Urea Nitrogen) 11 mg/dL (7.0-18.7); Bilirubin, Total 0.4 mg/dL (0.2-1.2); Calc. Creatinine Clearance 0 mL/min (70-130); Calcium 9.3 mg/dL (7.8-10.44); Carbon Dioxide 21 mmol/L (22-29); Chloride 110 mmol/L (98-107); Globulin 3.4 g/dL (2.4-3.5); Glucose 95 mg/dL (70-105); Lipase 24 U/L (8-78); Potassium 3.6 mmol/L (3.5-5.1); Protein, Total 7.7 g/dL (6.0-8.3); Sodium 138 mmol/L (136-145)
[2021-06-17] MEDS ORDERED: Ondansetron PF 4 MG/2 ML Vial ONE (23:25)
[2021-06-17] MEDS ORDERED: Morphine 4 MG/ML VIAL ONE (23:25)
[2021-06-18] MEDS ORDERED: Ketorolac Tromethamine 30 MG/ML VIAL ONE (00:16)
== END 2021-06-18 00:25 | disposition home or self-care (01) ==
LOC: ERS 21:44
DX: N39.0 Urinary tract infection, site not specified (principal)
CPT/HCPCS: 36415; 74177; 80053; 81003; 81015; 81025; 83690; 85025; 87086; 96374; 96375; J1885; J2270; J2405; Q9967

== ENCOUNTER 2022-03-20 18:30 | Emergency (ER) | payer SELFPAY ==
[2022-03-20 19:42] LABS: Bacteria/HPF None Seen HPF (None Seen); Bilirubin Negative (Negative); Blood, Urine 2+ (Negative); Clarity Turbid (Clear); Glucose, Urine (Dipstick) Normal (Negative); Ketone, Urine Negative (Negative); Leukocyte 500 Leu/uL (Negative); Nitrite Negative (Negative); Protein, Urine (Dipstick) 30 mg/dL (Neg-Trace); RBC/HPF Greater than 50 HPF (0-3); Specific Gravity, Urine 1.026 (1.002-1.036); Urobilinogen Normal mg/dL (Less than 2); WBC/HPF Greater than 50 HPF (0-3)
[2022-03-20 19:57] LABS: Pregnancy Test - Urine (BHCG) Negative (Negative); Pregu Control Background? CLEAR/WHITE (CLR/WHITE); Pregu Control Bar Appear? YES (CONTROL BAR); Specific Gravity 1.026 (1.002-1.036)
== END 2022-03-20 19:57 | disposition home or self-care (01) ==
LOC: ERS 18:30
DX: N39.0 Urinary tract infection, site not specified (principal)
CPT/HCPCS: 81003; 81015; 81025; 99283